=== PATIENT | female | born 1975 | race Caucasian/White ===

== ENCOUNTER 2016-11-26 07:42 | Emergency (ER) | payer OTHER ==
[2016-11-26 07:55] VITALS: BP 133/93
[2016-11-26 08:32] LABS: RAPID STREP SCREEN REAGENT QC YELLOW (YELLOW)
[2016-11-26] MEDS ORDERED: DEXAMETHASONE 10 MG/ML VIAL PO STA (08:36)
--- NOTE | 2016-11-26 08:39 | ED Physician Documentation ---
History of Present Illness - Stated complaint Stated Complaint: SORE THROAT - Chief complaint Chief Complaint: Heent - Additonal information Additional information: hx from pt 41 y/o f denies preg to ER with sore throat X 4 days chills no fever no ear pain no cough no abd pain Review of Systems Constitutional: reports: Chills. denies: Fever Ears: denies: Ear pain Throat: reports: Sore throat Respiratory: denies: Cough GI: denies: Abdominal Pain : denies: Now EGA Immunocompromised: denies: Immunocompromised PD PAST MEDICAL HISTORY - Past Medical History Cardiovascular: None Respiratory: None Neuro: None Endocrine/Autoimmune: HyPOthyroidism GI: None ELIGIBILITY TECHNICIAN: None : None HEENT: None Psych: None Musculoskeletal: None Derm: None - Past Surgical History Past Surgical History: Yes General: Gastric surgery - Present Medications Home Medications: Ambulatory Orders Medication Instructions Recorded Confirmed Levothyroxine Sodium [Synthroid] 175 mcg ORAL DAILY 05/15/14 11/26/16 Penicillin Vk 500 mg PO Q8H 10 Days 11/26/16 - Allergies Allergies/Adverse Reactions: Allergies Allergy/AdvReac Type Severity Reaction Status Date / Time No Known Drug Allergies Allergy Verified 11/26/16 07:55 - Social History Does the pt smoke?: No Smoking Status: Never smoker Does the pt drink ETOH?: No Does the pt have substance abuse?: No - Immunizations Immunizations are current?: Yes PD ED PE NORMAL - Vitals Vital signs reviewed: Yes - General General: Alert and oriented X 3 - HEENT HEENT: PERRL, Ears normal, Moist mucous membranes. No: Pharynx benign (yong markedly enlarged tonils, L > R with erythema and exudate and erythema spreads across soft palate thoguh no palate swelling or uvula deviation) - Neck Neck: Supple, no meningeal sign, Other (no pain with tracheal manipulation) - Cardiac Cardiac: RRR - Respiratory Respiratory: No respiratory distress, Clear bilaterally - Abdomen Abdomen: Soft, Non tender, No organomegaly - Derm Derm: Normal color, No rash - Neuro Neuro: Alert and oriented X 3 Results - Vitals Vitals: Vital Signs - 24 hr 11/26/16 07:53 Temperature 36.7 C Heart Rate 80 Respiratory 16 Rate Blood Pressure 133/93 H O2 Saturation 97 Oxygen O2 Source Room air - Labs Labs: Laboratory Tests 11/26/16 07:50 Group A Strep Rapid Negative Departure - Departure Disposition: Home, Self Care Clinical Impression: Exudative pharyngitis Condition: Good Instructions: ED Strep Pharyngitis Poss Prescriptions: Penicillin Vk 500 mg PO Q8H 10 Days Comments: The rapid strep was negative But you meet all the [facility] criteria for strep and it looks like you are starting to develop and abscess to the left tonsil So I have prescribed antibiotics We also gave you a dose or steroids to decrease the swelling. Please follow up with your PMD for a recheck in 48 hr unless significantly improved. And return to the ER if worse. Also your blood pressure was high today -please follow up with your PMD to recheck Forms: Activity restrictions
[2016-11-26] MEDS ORDERED: DEXAMETHASONE 10 MG/ML VIAL ONE (08:46)
[2016-11-26] MEDS ORDERED: CHERRY SYRUP 10 ML UDC PO ONE (08:46)
== END 2016-11-26 08:47 | disposition home or self-care (01) ==
LOC: ED 07:42
DX: J02.9 Acute pharyngitis, unspecified (principal); E03.9 Hypothyroidism, unspecified; Z98.84 Bariatric surgery status
CPT/HCPCS: 87070; 87430; 99283; A9270